=== PATIENT | female | born 1980 ===

== ENCOUNTER 2023-05-01 10:39 | Outpatient (OUT) | payer MEDICAID, SELFPAY ==
--- NOTE | 2023-05-01 10:44 | VEIN_ITS ---
Patient: KRISTIAN MCDANIELS Exam Date: 05/01/2023 : 1980 Gender:F Ordering : DR DORENE MELGAR M.D. Admission #: [id number] Family : Order #: [id number] CLICK HERE TO VIEW EXAM RADIOLOGY REPORT PROCEDURE: [facility] EST COMPREHENSIVE VEIN CENTER - OFFICE VISIT INITIAL COMPARISON: None. PROGRESS NOTES: [age] year old female who presents with a 10 year history of discolored bulging veins, leg pain, swelling, muscle cramping, itching, tenderness. The patient's right leg symptoms are worse than the left. There has been a progression of symptoms significantly over time. This increases with prolonged leg dependency. The patient describes an improvement with rest, exercise, support stockings, and medication. The patient denies any signs and symptoms to suggest arterial ischemia. The patient describes a family history varicose veins on maternal side. The patient has drinking and smoking history of colon occasional smoking; no alcohol use.. 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 The patient denies a history of deep venous thrombus or pulmonary embolus. See separate history and physical for medication list. No prior treatment for varicose or spider veins. Prior treatment included use of compression stockings. After review of nurse notes, history and physical exam I discussed at length the pathophysiology of venous hypertension and possible treatments, therapies and strategies available. We discussed at length the importance of elevating the lower extremities above the level of the heart, increased physical activity and compression stocking use. Ultrasound venous reflux study performed today was discussed at length with the patient. The report demonstrates abnormally dilated incompetent bilateral great saphenous veins, bilateral anterior accessory saphenous veins, and numerous bilateral incompetent branch saphenous varicosities. PHYSICAL EXAM: The right leg demonstrates multiple varicosities, numerous spider veins, no ulceration, mild edema, no skin discoloration. The left leg demonstrates multiple varicosities, scattered spider veins, no ulceration, mild edema, no skin discoloration. Both thighs, legs and feet were symmetrically warm to the touch. Good posterior tibial and dorsalis pedis pulses were present bilaterally. VEIN/[facility] Facility EST Comprehensive IMPRESSION: 1. Bilateral lower extremity venous insufficiency 2. Bilateral lower extremity varicose veins 3. Mild bilateral lower extremity subcutaneous edema 4. No flow significant arterial disease 5. CEAP: C3, EC, , AL PLAN: 1. Continued use of compression stockings 2. Elevated legs and increased physical activity symptomatic relief 3. Endovenous laser ablation of bilateral great saphenous veins, bilateral anterior accessory saphenous veins, microfoam chemical ablation of bilateral incompetent branch saphenous varicosities, and sclerotherapy for vertically veins and spider veins. Nurse notes, history and physical were reviewed and confirmed, see attached forms. The nurse was present throughout the physical exam and consultation Dictated by: Perfecto Samson M.D. on 05/01/2023 at 14:42 Approved by: Perfecto Samson M.D. on 05/01/2023 at 15:30
--- NOTE | 2023-05-01 10:44 | VEIN_ITS ---
Patient: KRISTIAN MCDANIELS Exam Date: 05/01/2023 : 1980 Gender:F Ordering : DR DORENE MELGAR M.D. Admission #: [id number] Family : Order #: [id number] CLICK HERE TO VIEW EXAM RADIOLOGY REPORT PROCEDURE: VC EXT VENOUS REFLUX SINCERE LMTD COMPARISON: None. INDICATIONS: I83.813 Pain due to varicose veins of bilateral leg veins TECHNIQUE: Duplex imaging of the lower extremity to assess the deep and superficial venous system for the presence of deep or superficial venous incompetence and to document the location and severity of disease. The study includes evaluation of the great saphenous vein (GSV), anterior accessory saphenous vein (AASV) and small saphenous vein (SSV). Patient scanned in reverse Trendelenburg and standing. FINDINGS: RIGHT LOWER EXTREMITY: Saphenofemoral Junction Reflux: Yes 11.0mm 1.8 sec GSV: Diam (mm) Reflux/ Time (sec) Proximal Thigh 8.4 Yes 1.1 Mid Thigh 5.8 Yes 0.6 Distal Thigh 8.6 Yes 1.1 Prox Calf 3.8 Yes 1.6 Mid Calf 3.0 Yes 0.9 Saphenopopliteal Junction Reflux: 4.7mm Yes 0.3 SSV: Proximal Calf 3.7 Yes 0.5 Mid Calf 4.2 Yes 0.3 AASV: Proximal Thigh 5.9 Yes 2.2 Mid Thigh 3.7 Yes 0.5 Distal Thigh Thrombi: No acute or chronic thrombus. Compressibility: Normal. Flow: Moderate deep venous reflux. Preforator: Prox medial lower leg 4.0 mm with 1.2s reflux. Tech Note: Incompetent varicose vein proximal medial lower leg measures 4.4 mm with 0.5s reflux. Varicose vein mid medial thigh off GSV measures 4.0 mm with 0.7s reflux. Mid medial posterior thigh varicosity measures 3.4 mm with 1.1s reflux. LEFT LOWER EXTREMITY: Saphenofemoral Junction Reflux: Yes 12.4 mm 3.4 sec GSV: Diam (mm) Reflux/Time (sec) Proximal Thigh 7.3 Yes 1.6 Mid Thigh 4.4 Yes 1.8 Distal Thigh 6.4 Yes 1.0 Prox Calf 4.2 Yes 0.5 Mid Calf 2.5 Yes 2.0 Saphenopopliteal Junction Relux: 3.7 mm Yes 0.5 SSV: Proximal Calf 3.2 Yes 0.6 Mid Calf 2.7 Yes 0.4 AASV: Proximal Thigh 7.9 Yes 3.2 Mid Thigh 4.6 Yes 1.2 Distal Thigh Thrombi: No acute or chronic thrombus. Compressibility: Normal. Flow: Moderate to severe deep venous reflux. News Director: None. Tech Note: Incompetent varicose vein proximal medial lower leg measures 3.5 mm with 1.6s reflux. Mid anterior thigh varicose vein measures 4.6 mm with 0.8s reflux. Varicose vein mid posterior thigh measures 4.0 mm with 0.6s reflux. CONCLUSION: 1. Abnormally dilated and incompetent bilateral great saphenous veins and bilateral anterior accessory saphenous veins. 2. Abnormally dilated and incompetent branch saphenous varicosities bilaterally. Dictated by: Perfecto Samson M.D. on 05/01/2023 at 11:50 Approved by: Perfecto Samson M.D. on 05/01/2023 at 11:53
== END 2023-05-01 10:40 | disposition home or self-care (01) ==
LOC: VC 10:43
PROVIDERS: PCP Radiology Diagnostic Radiology; Visit Provider Radiology Diagnostic Radiology
DX: I83.813 Varicose veins of bilateral lower extremities with pain (principal)
CPT/HCPCS: 93970; G0463

== ENCOUNTER 2023-05-22 07:36 | Outpatient (OUT) | payer MEDICAID, SELFPAY ==
--- NOTE | 2023-05-22 07:37 | VEIN_ITS ---
[address] [address] Patient Name: KRISTIAN MCDANIELS MRN: [id number] date: 1980 Sex: F Assigned Patient Location: Current Patient Location: Accession/Order Number: [id number] Exam Date: 05/22/2023 08:12 Report Date: 05/22/2023 11:30 At the request of: DORENE MELGAR Procedure: VC Endovenous Ablation 1VeinRT EXAMINATION: VC Endovenous Ablation 1Vein right great saphenous vein HISTORY: I83.813 Pain due to varicose veins of bilateral legs COMPARISON: No relevant comparison available. TECHNIQUE: The risks and benefits of the procedure had been previously discussed, and were rediscussed at length. Informed written consent was obtained. Bree and [place] assisted. Time out procedure was performed. The right lower extremity was prepared and draped in the usual sterile fashion to allow knee flexion in the sterile field. Duplex ultrasound probe was draped in a sterile cover, sterile transmission gel was used. Venous mapping was performed with the areas of dilation and large tributaries marked. The total length was 34 cm from the entry upper calf to 3 cm below the saphenofemoral junction. The diameter of the greater saphenous vein ranged from 4-9 mm. A 30 gauge needle and 1% buffered lidocaine was used to anesthetize the entry site. A 4 mm incision was made with a scalpel and the saphenous vein was entered percutaneously under direct ultrasound guidance with a micropuncture set, a single stick was successful in gaining access. A micro-guide wire was inserted and the needle removed. A micro-set including a dilator was inserted over the microwire and the needle and dilator were removed. A 0.018 guide wire was inserted through the micro-set and threaded through the saphenous vein to the saphenofemoral junction. The dilator was removed and an introducer sheath was inserted over the wire until the end of the sheath entered the saphenofemoral junction. The dilator and wire were removed and the 600 micron fiber was introduced and placed and positioned so that it extended beyond the sheath and was 3 cm peripheral to the saphenofemoral femoral junction. Final position of the fiber was determined by ultrasound guidance and duplex imaging. Tumescent anesthetic was delivered by ultrasound guidance. 200 cc of fluid was delivered along the entire course of the saphenous vein. The solution consisted of 1000 cc of normal saline with 40 mL of 1% lidocaine and 20 mL of sodium bicarbonate. A final positioning check was made. The energy source was turned on by means of the foot pedal and the fiber and sheath were withdrawn. The total number of Joules delivered was 1609. The laser was active for 201 seconds under continuous pulse, average laser use of 8 J. Laser start time 8:25 AM 05/22/2023 . Laser stop time 8:28 am 05/22/2023 . A duplex ultrasound revealed compressibility and flow at the saphenofemoral junction immediately after the procedure. Hemostasis at the access site was achieved. The skin incision of the saphenous vein was closed with a 4 x 4. A compression stocking was applied. Postop instructions were given. A follow up appointment was recommended and scheduled. The patient tolerated the procedure well and was discharged in good condition . VEIN/[facility] Endovenous Ablation 1VeinRT IMPRESSION: Technically successful endovenous laser ablation right great saphenous vein Electronically authenticated by: DORENE MELGAR Date: 05/22/2023 11:30
[2023-05-22] MEDS: 0.9 % SODIUM CHLORIDE 500 ML, LIDOCAINE HCL 20 ML, SODIUM BICARBONATE 10 MEQ INJ (08:52)
== END 2023-05-22 07:37 | disposition home or self-care (01) ==
LOC: VC 07:36
PROVIDERS: PCP Radiology Diagnostic Radiology; Visit Provider Radiology Diagnostic Radiology
DX: I83.813 Varicose veins of bilateral lower extremities with pain (principal)
CPT/HCPCS: 36478

== ENCOUNTER 2023-05-26 07:37 | Outpatient (OUT) | payer MEDICAID, SELFPAY ==
--- NOTE | 2023-05-26 07:39 | VEIN_ITS ---
Patient: KRISTIAN MCDANIELS Exam Date: 05/26/2023 : 1980 Gender:F Ordering : DR ABELARDO HAMILTON M.D. Admission #: [id number] Family : Order #: [id number] CLICK HERE TO VIEW EXAM RADIOLOGY REPORT PROCEDURE: VC EXT VENOUS RT LMTD COMPARISON: None. INDICATIONS: I80.01 Phlebitis of superficial veins of rt lower extremity TECHNIQUE: Lower extremity cortez scale and Duplex Doppler evaluation of the deep venous system from the inguinal ligament through the calf veins. FINDINGS: REGION: Right lower extremity. THROMBI: Negative for DVT. Heat induced thrombus visualized 1.2 cm from the SFJ. The heat induced thrombus extends from groin to prox calf. COMPRESSIBILITY: Non-compressible segments corresponding to thrombus. FLOW: Absent flow corresponding to thrombus CONCLUSION: Post ablation occlusion of the right great saphenous vein with heat induced thrombus 1.2 cm from the saphenofemoral junction Dictated by: Abelardo Hamilton MD on 05/26/2023 at 07:54 Approved by: Abelardo Hamilton MD on 05/26/2023 at 07:54
--- NOTE | 2023-05-26 07:39 | VEIN_ITS ---
Patient: KRISTIAN MCDANIELS Exam Date: 05/26/2023 : 1980 Gender:F Ordering : DR ABELARDO HAMILTON M.D. Admission #: [id number] Family : Order #: [id number] CLICK HERE TO VIEW EXAM RADIOLOGY REPORT PROCEDURE: [facility]ACILITY EST LMTD VEIN CENTER - OFFICE VISIT FOLLOW UP COMPARISON: None. PROGRESS NOTES: The patient reports no significant problem following endovenous laser ablation of the right great saphenous vein. The patient wore her compression stockings. The patient did not require oral analgesics. The patient has followed our recommendations to walk 20-30 minutes once or twice per day since the procedure. Physical exam demonstrates 5 areas of bruising likely related to tumescence injection ranging from 1-2 cm in diameter. The thrombosed right great saphenous vein can be partially palpated. No areas of erythema or warmth to suggest cellulitis or thrombophlebitis. No active ulceration Review of the ultrasound performed the same day demonstrates occlusive thrombus extending throughout the treated right great saphenous vein with heat induced thrombus 1.2 cm from the saphenofemoral junction. The patient expressed a desire to proceed with treatment of incompetent left great saphenous vein. VEIN/[facility] Facility EST LMTD IMPRESSION: 1. Successful ablation of the right great saphenous vein 2. Persistent incompetent left great saphenous vein. PLAN: Intravenous laser ablation left great saphenous vein Nurse notes, history and physical were reviewed and confirmed, see attached forms. The nurse was present throughout the physical exam and consultation Dictated by: Abelardo Hamilton MD on 05/26/2023 at 08:08 Approved by: Abelardo Hamilton MD on 05/26/2023 at 08:43
== END 2023-05-26 07:38 | disposition home or self-care (01) ==
LOC: VC 07:37
PROVIDERS: PCP Radiology Diagnostic Radiology; Visit Provider Radiology Diagnostic Radiology
DX: I80.01 Phlebitis and thrombophlebitis of superficial vessels of right lower extremity (principal)
CPT/HCPCS: 93971; G0463

== ENCOUNTER 2023-05-29 07:42 | Outpatient (OUT) | payer MEDICAID, SELFPAY ==
--- NOTE | 2023-05-29 07:46 | VEIN_ITS ---
[address] [address] Patient Name: KRISTIAN MCDANIELS MRN: [id number] date: 1980 Sex: F Assigned Patient Location: Current Patient Location: Accession/Order Number: [id number] Exam Date: 05/29/2023 07:50 Report Date: 05/29/2023 09:01 At the request of: DORENE MELGAR Procedure: VC Endovenous Ablation 1VeinLT EXAMINATION: VC Endovenous Ablation 1VeinLT HISTORY: I83.813 Pain due to varicose veins of bilateral legs The risks and benefits of the procedure had been previously discussed, and were rediscussed at length. Informed written consent was obtained. Merritt Urbina RN and Shannon Mcintosh RDMS, RVT assisted. Time out procedure was performed. The left lower extremity was prepared and draped in the usual sterile fashion to allow knee flexion in the sterile field. Duplex ultrasound probe was draped in a sterile cover, sterile transmission gel was used. Venous mapping was performed with the areas of dilation and large tributaries marked. The total length was 34 cm from the entry medial to the knee to 3 cm below the Saphenofemoral junction. The diameter of the great saphenous vein ranged from 7.3 mm. A 30 gauge needle and 1% buffered lidocaine was used to anesthetize the entry site. A 4 mm incision was made with a scalpel and the saphenous vein was entered percutaneously under direct ultrasound guidance with a micropuncture set, a single stick was successful in gaining access. A micro-guide wire was inserted and the needle removed. A micro-set including a dilator was inserted over the microwire and the needle and dilator were removed. A guide wire was inserted through the micro-set and guided through the saphenous vein to the saphenofemoral junction. The dilator was removed and an introducer sheath was inserted over the wire until the end of the sheath entered the saphenofemoral junction. The dilator and wire were removed and the 600 micron fiber was introduced and placed and positioned so that it extended beyond the sheath and was 3 cm distal to the saphenofemoral or saphenopopliteal junction. Final position of the fiber was determined by ultrasound guidance and duplex imaging. Tumescent anesthetic was delivered by ultrasound guidance. 300 cc of fluid was delivered along the entire course of the saphenous vein. The solution consisted of 1000 cc of normal saline with 40 mL of 1% lidocaine and 20 mL of sodium bicarbonate. A final positioning check was made. The energy source was turned on by means of the foot pedal and the fiber and sheath were withdrawn. The total number of Joules delivered was 1574. The laser was active for 197 seconds under continuous pulse, average laser use of 8 J. Laser start time 8:25 AM, 05/29/2023. Laser stop time 8:32 AM, 05/29/2023. A duplex ultrasound revealed compressibility and flow at the saphenofemoral junction immediately after the procedure. Hemostasis at the access site was achieved. The skin incision of the saphenous vein was closed with a 4 x 4. A compression stocking was applied. Postop instructions were given. A follow up appointment was recommended and scheduled. The patient tolerated the procedure well. Electronically authenticated by: CHRISTELLE BENNETT Date: 05/29/2023 09:01
[2023-05-29] MEDS: 0.9 % SODIUM CHLORIDE 500 ML, LIDOCAINE HCL 20 ML, SODIUM BICARBONATE 10 MEQ INJ (07:52)
[2023-05-29] MEDS: LIDOCAINE HCL 10 ML, SODIUM BICARBONATE 1 MEQ INJ (07:53)
== END 2023-05-29 07:43 | disposition home or self-care (01) ==
LOC: VC 07:42
PROVIDERS: PCP Radiology Diagnostic Radiology; Visit Provider Radiology Diagnostic Radiology
DX: I83.813 Varicose veins of bilateral lower extremities with pain (principal)
CPT/HCPCS: 36478

== ENCOUNTER 2023-06-02 07:31 | Outpatient (OUT) | payer MEDICAID, SELFPAY ==
--- NOTE | 2023-06-02 07:33 | VEIN_ITS ---
Patient: KRISTIAN MCDANIELS Exam Date: 06/02/2023 : 1980 Gender:F Ordering : DR ABELARDO HAMILTON M.D. Admission #: [id number] Family : Order #: [id number] CLICK HERE TO VIEW EXAM RADIOLOGY REPORT PROCEDURE: [facility] EST LMTD VEIN CENTER - OFFICE VISIT FOLLOW UP [facility] PROGRESS NOTES: The patient reports mild discomfort of the left leg following intravenous laser ablation of the left great saphenous vein. The patient did not require oral analgesics. The patient has worn her compression stockings. The patient has followed our recommendations to walk 20-30 minutes once or twice per day since the procedure. Physical exam demonstrates 5 areas of bruising in the medial left thigh likely related to tumescence injection. The incision site is closed. No areas of erythema or bruising to suggest cellulitis or thrombophlebitis. No active ulceration. Thrombosed left great saphenous vein can be partially palpated Review of the ultrasound performed the same day demonstrates occlusive thrombus extending throughout the treated left great saphenous vein with heat induced thrombus 1.5 cm from the saphenofemoral junction. The patient expressed a desire to proceed with treatment of incompetent left anterior accessory saphenous vein. VEIN/[facility] EST LMTD IMPRESSION: 1. Successful ablation of the left great saphenous vein 2. Persistent incompetent bilateral anterior accessory saphenous veins, left greater than right. PLAN: Intravenous laser ablation left anterior accessory saphenous vein Nurse notes, history and physical were reviewed and confirmed, see attached forms. The nurse was present throughout the physical exam and consultation Dictated by: Abelardo Hamilton MD on 06/02/2023 at 08:38 Approved by: Abelardo Hamilton MD on 06/02/2023 at 08:44
--- NOTE | 2023-06-02 07:33 | VEIN_ITS ---
Patient: KRISTIAN MCDANIELS Exam Date: 06/02/2023 : 1980 Gender:F Ordering : DR ABELARDO HAMILTON M.D. Admission #: [id number] Family : Order #: [id number] CLICK HERE TO VIEW EXAM RADIOLOGY REPORT PROCEDURE: VC EXT VENOUS LT LIMITED COMPARISON: None. INDICATIONS: I80.02 Phlebitis of superficial veins of lt lower extremity TECHNIQUE: Lower extremity cortez scale and Duplex Doppler evaluation of the deep venous system from the inguinal ligament through the calf veins. FINDINGS: REGION: Right lower extremity. THROMBI: Negative for DVT. Heat induced thrombus visualized 1.5 cm from the SFJ. The heat induced thrombus extends from groin to distal thigh. COMPRESSIBILITY: Non-compressible segments corresponding to thrombus. FLOW: Absent flow corresponding to thrombus CONCLUSION: Post ablation occlusion of the left great saphenous vein with heat induced thrombus 1.5 cm from the saphenofemoral junction Dictated by: Abelardo Hamilton MD on 06/02/2023 at 07:50 Approved by: Abelardo Hamliton MD on 06/02/2023 at 07:52
== END 2023-06-02 07:32 | disposition home or self-care (01) ==
LOC: VC 07:31
PROVIDERS: PCP Radiology Diagnostic Radiology; Visit Provider Radiology Diagnostic Radiology
DX: I80.02 Phlebitis and thrombophlebitis of superficial vessels of left lower extremity (principal)
CPT/HCPCS: 93971; G0463

== ENCOUNTER 2023-06-05 09:11 | Outpatient (OUT) | payer MEDICAID, SELFPAY ==
--- NOTE | 2023-06-05 09:13 | VEIN_ITS ---
[address] [address] Patient Name: KRISTIAN MCDANIELS MRN: [id number] date: 1980 Sex: F Assigned Patient Location: Current Patient Location: Accession/Order Number: [id number] Exam Date: 06/05/2023 09:15 Report Date: 06/05/2023 10:19 At the request of: DORENE MELGAR Procedure: VC Endovenous Ablation 1VeinLT EXAMINATION: VC Endovenous Ablation 1Vein left anterior accessory saphenous vein HISTORY: I83.813 Painful varicose veins of bilat lower extremities COMPARISON: No relevant comparison available. TECHNIQUE: The risks and benefits of the procedure had been previously discussed, and were rediscussed at length. Informed written consent was obtained. Mary Lou Mcintosh and Merritt Urbina assisted. Time out procedure was performed. The left lower extremity was prepared and draped in the usual sterile fashion to allow knee flexion in the sterile field. Duplex ultrasound probe was draped in a sterile cover, sterile transmission gel was used. Venous mapping was performed with the areas of dilation and large tributaries marked. The total length was 13 cm from the entry mid thigh to 3 cm below the saphenofemoral junction. The diameter of the greater saphenous vein ranged from 5-8 mm. A 30 gauge needle and 1% buffered lidocaine was used to anesthetize the entry site. A 4 mm incision was made with a scalpel and the saphenous vein was entered percutaneously under direct ultrasound guidance with a micropuncture set, a single stick was successful in gaining access. A micro-guide wire was inserted and the needle removed. A micro-set including a dilator was inserted over the microwire and the needle and dilator were removed. A 0.018 guide wire was inserted through the micro-set and threaded through the saphenous vein to the saphenofemoral junction. The dilator was removed and an introducer sheath was inserted over the wire until the end of the sheath entered the saphenofemoral junction. The dilator and wire were removed and the 600 micron fiber was introduced and placed and positioned so that it extended beyond the sheath and was 3 cm peripheral to the saphenofemoral femoral junction. Final position of the fiber was determined by ultrasound guidance and duplex imaging. Tumescent anesthetic was delivered by ultrasound guidance. 150 cc of fluid was delivered along the entire course of the saphenous vein. The solution consisted of 1000 cc of normal saline with 40 mL of 1% lidocaine and 20 mL of sodium bicarbonate. A final positioning check was made. The energy source was turned on by means of the foot pedal and the fiber and sheath were withdrawn. The total number of Joules delivered was 682. The laser was active for 85 seconds under continuous pulse, average laser use of 8 J. Laser start time 9:51 am 06/05/23 . Laser stop time 9:53 AM 06/05/23. A duplex ultrasound revealed compressibility and flow at the saphenofemoral junction immediately after the procedure. Hemostasis at the access site was achieved. The skin incision of the saphenous vein was closed with a 4 x 4. A compression stocking was applied. Postop instructions were given. A follow up appointment was recommended and scheduled. The patient tolerated the procedure well and was discharged in good condition . VEIN/VC Endovenous Ablation 1VeinLT IMPRESSION: Technically successful endovenous laser ablation left anterior accessory saphenous vein Electronically authenticated by: DORENE MELGAR Date: 06/05/2023 10:19
[2023-06-05] MEDS: 0.9 % SODIUM CHLORIDE 500 ML, LIDOCAINE HCL 20 ML, SODIUM BICARBONATE 10 MEQ INJ (09:36)
== END 2023-06-05 09:12 | disposition home or self-care (01) ==
LOC: VC 09:11
PROVIDERS: PCP Radiology Diagnostic Radiology; Visit Provider Radiology Diagnostic Radiology
DX: I83.813 Varicose veins of bilateral lower extremities with pain (principal)
CPT/HCPCS: 36478

== ENCOUNTER 2023-06-11 08:13 | Outpatient (OUT) | payer MEDICAID, SELFPAY ==
--- NOTE | 2023-06-11 08:14 | VEIN_ITS ---
Patient: KRISTIAN MCDANIELS Exam Date: 06/11/2023 : 1980 Gender:F Ordering : DR DORENE MELGAR M.D. Admission #: [id number] Family : Order #: [id number] CLICK HERE TO VIEW EXAM RADIOLOGY REPORT PROCEDURE: VC EXT VENOUS LT LIMITED COMPARISON: VC EXT VENOUS LT LIMITED, 06/02/2023. INDICATIONS: I80.02 Phlebitis of superficial veins of lt lower extremity TECHNIQUE: Lower extremity cortez scale and Duplex Doppler evaluation of the deep venous system from the inguinal ligament through the calf veins. FINDINGS: REGION: Left lower extremity. THROMBI: Negative for DVT. Heat induced thrombus visualized arising 2.6cm from the SFJ. The thrombus extends from groin to mid thigh. COMPRESSIBILITY: Non-compressible segments. FLOW: Areas of no flow. OTHER: CONCLUSION: 1. Successful post ablation occlusion of left anterior accessory saphenous vein. Dictated by: Perfecto Samson M.D. on 06/11/2023 at 09:40 Approved by: Perfecto Samson M.D. on 06/11/2023 at 09:43
--- NOTE | 2023-06-11 08:14 | VEIN_ITS ---
Patient: KRISTIAN MCDANIELS Exam Date: 06/11/2023 : 1980 Gender:F Ordering : DR DORENE MELGAR M.D. Admission #: [id number] Family : Order #: [id number] CLICK HERE TO VIEW EXAM RADIOLOGY REPORT PROCEDURE: [facility] EST LMTD VEIN CENTER - OFFICE VISIT FOLLOW UP COMPARISON: [facility], 06/02/2023. PROGRESS NOTES: The patient reports improvement in leg symptoms. There has been interval reduction in varicosities. The patient has followed our recommendations to walk 20-30 minutes once or twice per day since the procedure. Physical exam demonstrates decrease in varicosities of the leg. Persistent varicosities are identified along the legs bilaterally. Review of the ultrasound performed the same day demonstrates occlusive thrombus extending throughout the treated vein(s), see separate report, consistent with a successful ablation. No thrombus extending into or beyond the saphenofemoral junction. The patient expressed a desire to proceed with treatment of remaining abnormal varicosities. The patient was informed that treatment was a process and would require approximately 2-3 procedures/sessions. VEIN/[facility] EST LMTD IMPRESSION: 1. Successful ablation of the left anterior accessory saphenous vein(s). 2. Persistent varicose veins and improving bilateral lower extremity symptoms. PLAN: 1. Endovenous laser ablation of right anterior accessory saphenous vein due to proximal dilation, significant proximal reflux, varicosities, and patient being symptomatic in this region. 2. Microfoam chemical ablation branch saphenous varicosities bilaterally. Nurse notes, history and physical were reviewed and confirmed, see attached forms. The nurse was present throughout the physical exam and consultation Dictated by: Perfecto Samson M.D. on 06/11/2023 at 09:43 Approved by: Perfecto Samson M.D. on 06/11/2023 at 09:46
== END 2023-06-11 08:14 | disposition home or self-care (01) ==
LOC: VC 08:13
PROVIDERS: PCP Radiology Diagnostic Radiology; Visit Provider Radiology Diagnostic Radiology
DX: I80.02 Phlebitis and thrombophlebitis of superficial vessels of left lower extremity (principal)
CPT/HCPCS: 93971; G0463

== ENCOUNTER 2023-06-12 07:27 | Outpatient (OUT) | payer MEDICAID, SELFPAY ==
--- NOTE | 2023-06-12 | VEIN_ITS ---
[address] [address] Patient Name: KRISTIAN MCDANIELS MRN: [id number] date: 1980 Sex: F Assigned Patient Location: Current Patient Location: Accession/Order Number: [id number] Exam Date: 06/12/2023 07:35 Report Date: 06/12/2023 12:38 At the request of: DORENE MELGAR Procedure: VC INJ Foam Sclerosant WUS PRODUCTION CONTROL SCHEDULER PROCEDURE: VC INJ Foam Sclerosant WUS PRODUCTION CONTROL SCHEDULER HISTORY: I83.813 Painful varicose veins of bilat lower extremities Pre-operative Diagnosis: CEAP class C3 venous insufficiency with pain, tenderness, edema and incompetent branch saphenous vein(s), chronic venous insufficiency right leg secondary to venous incompetence Post-operative Diagnosis: CEAP class C3 venous insufficiency with pain, tenderness, edema and incompetent branch saphenous vein(s), chronic venous insufficiency right leg secondary to venous incompetence Procedure Performed: 1. Ultrasound-guided microfoam chemical ablation with Varithenaregistered 2. Intraoperative ultrasound guidance Physician: Perfecto Samson M.D. Anesthesia: None Indications for Procedure: 43 year old female. Symptoms including chronic dilated, bulging veins, lower extremity swelling, itching, throbbing for many years despite conservative medical therapy including medical compression stockings, exercise and analgesics. Prior procedures include endovenous laser ablation. Multiple incompetent varicosities of the right leg. Duplex scan showed reflux and enlarged diameters up to 4 mm. The patient underwent informed consent including management options where the complications of infection, bleeding, pain, and skin injury were discussed. Particular attention was spent discussing thrombus extension and deep vein thrombosis as well as the possibility of pulmonary embolus and treatment with oral or injectable blood thinners. Procedure: The patient walked to the procedure room. All applicable staff donned appropriate apparel. A procedure timeout was performed to confirm correct patient, correct extremity, correct procedure, and correct room set-up including presence of all applicable supplies, devices, and drugs. A duplex ultrasound, performed by myself confirmed the location and incompetence of branch saphenous varicosities and their course was marked on the skin together with the dilated tributaries. The extent of treatment of the vein and the associated varicosities was determined through ultrasound mapping. The skin was prepped and then punctured with a butterfly needle and advanced under ultrasound guidance. The Varithenaregistered canister was activated and the canister was primed and purged as required in the instructions for use. Varithenaregistered was drawn into a sterile syringe. Varithenaregistered was slowly administered at 0.5-1.0 cc/second with close observation by ultrasound of its course in the vessels. Total volume utilized was: 15 mL (5 mL into a 4 mm varicosity of the mid posterior calf; 2 mL into a 3 mm varicosity of the lateral posterior mid upper calf; 3 mL into a 3 mm varicosity of the proximal posterior upper leg). Following administration of Varithenaregistered the leg was elevated and the patient was asked to repeatedly dorsiflex the ankle to limit flow of Varithenaregistered into perforating veins. Once appropriate spasm had been confirmed in the treated veins, the vascular catheter was removed from the leg and light pressure was applied over the puncture site for hemostasis. The common femoral and deep superficial veins were then evaluated for flow and compressibility prior to dressing placement. The lower extremity was kept elevated at 45 degrees above the horizontal and cording material was applied over the saphenous segments and tributaries to allow for eccentric compression over the target vessels including the targeted saphenous vein(s). A multilayer dressing was applied consisting of foam pads, coban and thigh-high 20-30 mm Hg compression elastic support hose were placed on the patient. The leg was lowered only after compression had been applied and the patient was immediately ambulatory. The patient ambulated 10 minutes under supervision and was without apparent concerns at time of release. Post-care instructions include advising patient to keep post-treatment bandages in place and dry for 48 hours, avoid extended periods of inactivity, avoid heavy exercise for one week, wear compression stockings on the treated leg continuously for two weeks, to walk daily for 10 minutes over the next month. The patient was instructed to take an anti-inflammatory medicine as needed and to follow up for color duplex scan of the Saphenous veins, the treated branch saphenous varicosities, the adjacent deep veins, and additional treatment within 7 days. PERSONNEL: Merritt Urbina RN and Nasra Montana RDMS Electronically authenticated by: PERFECTO SAMSON Date: 06/12/2023 12:38
[2023-06-12] MEDS: LIDOCAINE HCL 10 ML, SODIUM BICARBONATE 1 MEQ INJ (07:40)
[2023-06-12] MEDS: 0.9 % SODIUM CHLORIDE 500 ML, LIDOCAINE HCL 20 ML, SODIUM BICARBONATE 10 MEQ INJ (07:41)
== END 2023-06-12 07:28 | disposition home or self-care (01) ==
LOC: VC 07:28
PROVIDERS: PCP Radiology Diagnostic Radiology; Visit Provider Radiology Diagnostic Radiology
DX: I83.813 Varicose veins of bilateral lower extremities with pain (principal)
CPT/HCPCS: 36466

== ENCOUNTER 2023-06-16 09:05 | Outpatient (OUT) | payer MEDICAID, SELFPAY ==
--- NOTE | 2023-06-16 09:06 | VEIN_ITS ---
Patient: KRISTIAN MCDANIELS Exam Date: 06/16/2023 : 1980 Gender:F Ordering : DR ABELARDO HAMILTON M.D. Admission #: [id number] Family : Order #: [id number] CLICK HERE TO VIEW EXAM RADIOLOGY REPORT PROCEDURE: [facility]ILITY EST LMTD [facility]IN CENTER - OFFICE VISIT FOLLOW UP COMPARISON: FACILITY EST LMTD, 06/11/2023. FACILITY EST LMTD, 06/02/2023. PROGRESS NOTES: The patient reports no significant problems following micro foam chemical ablation the right leg. The patient has worn compression stockings. There has been interval reduction in varicosities. The patient has followed our recommendations to walk 20-30 minutes once or twice per day since the procedure. Physical exam demonstrates scattered thrombosed treated varicose veins in the right leg. Multiple areas of bruising likely related to the injections the largest measuring 10 cm in diameter along the lateral right mid proximal thigh. No areas of erythema or warmth to suggest cellulitis or thrombophlebitis. No active ulceration. Review of the ultrasound performed the same day demonstrates occlusive thrombus extending throughout the treated right leg varicose veins with no significant residual incompetent patent varicose veins observed. The patient expressed a desire to proceed with treatment of incompetent left leg varicose veins. VEIN/ Facility EST LMTD IMPRESSION: 1. Successful ablation of incompetent right leg varicose veins. 2. Persistent incompetent left leg varicose veins. PLAN: Micro foam chemical ablation left leg incompetent varicose veins Nurse notes, history and physical were reviewed and confirmed, see attached forms. The nurse was present throughout the physical exam and consultation Dictated by: Abelardo Hamilton MD on 06/16/2023 at 11:49 Approved by: Abelardo Hamilton MD on 06/16/2023 at 11:51
--- NOTE | 2023-06-16 09:07 | VEIN_ITS ---
Patient: KRISTIAN MCDANIELS Exam Date: 06/16/2023 : 1980 Gender:F Ordering : DR ABELARDO HAMILTON M.D. Admission #: [id number] Family : Order #: [id number] CLICK HERE TO VIEW EXAM RADIOLOGY REPORT PROCEDURE: VC EXT VENOUS RT LMTD COMPARISON: [facility] EXT VENOUS RT LMTD, 05/26/2023. INDICATIONS: I80.01 Phlebitis of superficial veins of rt lower extremity TECHNIQUE: Lower extremity cortez scale and Duplex Doppler evaluation of the deep venous system from the inguinal ligament through the calf veins. FINDINGS: REGION: Right lower extremity. THROMBI: Negative for DVT. Varithena induced thrombus visualized prox/med calf and mid/lat calf COMPRESSIBILITY: Non-compressible segments corresponding to thrombus. FLOW: Absent flow corresponding to thrombus OTHER: No patent varicose veins remain. CONCLUSION: Post ablation occlusion of treated right leg incompetent varicose veins with no residual varicose veins observed Dictated by: Abelardo Hamilton MD on 06/16/2023 at 09:33 Approved by: Abelardo Hamilton MD on 06/16/2023 at 09:34
== END 2023-06-16 09:06 | disposition home or self-care (01) ==
LOC: VC 09:05
PROVIDERS: PCP Radiology Diagnostic Radiology; Visit Provider Radiology Diagnostic Radiology
DX: I80.03 Phlebitis and thrombophlebitis of superficial vessels of lower extremities, bilateral (principal)
CPT/HCPCS: 93971; G0463

== ENCOUNTER 2023-06-19 09:59 | Outpatient (OUT) | payer MEDICAID, SELFPAY ==
--- NOTE | 2023-06-19 10:00 | VEIN_ITS ---
[address] [address] Patient Name: KRISTIAN MCDANIELS MRN: [id number] date: 1980 Sex: F Assigned Patient Location: Current Patient Location: Accession/Order Number: [id number] Exam Date: 06/19/2023 10:00 Report Date: 06/19/2023 11:22 At the request of: DORENE MELGAR Procedure: VC INJ Foam Sclerosant WUS SCRIPT EDITOR PROCEDURE: VC INJ Foam Sclerosant WUS SCRIPT EDITOR HISTORY: Pain due to varicose veins of bilateral legs I83.813 Pre-operative Diagnosis: CEAP class C3 venous insufficiency with pain, tenderness, edema and incompetent branch saphenous vein(s), chronic venous insufficiency left leg secondary to venous incompetence Post-operative Diagnosis: CEAP class C3 venous insufficiency with pain, tenderness, edema and incompetent branch saphenous vein(s), chronic venous insufficiency left leg secondary to venous incompetence Procedure Performed: 1. Ultrasound-guided microfoam chemical ablation with Varithenaregistered 2. Intraoperative ultrasound guidance Physician: Perfecto Samson M.D. Anesthesia: None Indications for Procedure: 43 year old female. Symptoms including lower extremity swelling, pain, dilated bulging veins for many years despite conservative medical therapy including medical compression stockings, exercise and analgesics. Prior procedures include endovenous laser ablation and microfoam chemical ablation. Multiple incompetent varicosities of the left leg. Duplex scan showed reflux and enlarged diameters up to 5 mm. The patient underwent informed consent including management options where the complications of infection, bleeding, pain, and skin injury were discussed. Particular attention was spent discussing thrombus extension and deep vein thrombosis as well as the possibility of pulmonary embolus and treatment with oral or injectable blood thinners. Procedure: The patient walked to the procedure room. All applicable staff donned appropriate apparel. A procedure timeout was performed to confirm correct patient, correct extremity, correct procedure, and correct room set-up including presence of all applicable supplies, devices, and drugs. A duplex ultrasound, performed by myself confirmed the location and incompetence of branch saphenous varicosities and their course was marked on the skin together with the dilated tributaries. The extent of treatment of the vein and the associated varicosities was determined through ultrasound mapping. The skin was prepped and then punctured with a butterfly needle and advanced under ultrasound guidance. The Varithenaregistered canister was activated and the canister was primed and purged as required in the instructions for use. Varithenaregistered was drawn into a sterile syringe. Varithenaregistered was slowly administered at 0.5-1.0 cc/second with close observation by ultrasound of its course in the vessels. Total volume utilized was: 11 mL (7 mL into a 5 mm varicosity of the distal lateral thigh; 4 mL into a 3 mm varicosity of the distal medial thigh). Following administration of Varithenaregistered the leg was elevated and the patient was asked to repeatedly dorsiflex the ankle to limit flow of Varithenaregistered into perforating veins. Once appropriate spasm had been confirmed in the treated veins, the vascular catheter was removed from the leg and light pressure was applied over the puncture site for hemostasis. The common femoral and deep superficial veins were then evaluated for flow and compressibility prior to dressing placement. The lower extremity was kept elevated at 45 degrees above the horizontal and cording material was applied over the saphenous segments and tributaries to allow for eccentric compression over the target vessels including the targeted saphenous vein(s). A multilayer dressing was applied consisting of foam pads, coban and thigh-high 20-30 mm Hg compression elastic support hose were placed on the patient. The leg was lowered only after compression had been applied and the patient was immediately ambulatory. The patient ambulated 10 minutes under supervision and was without apparent concerns at time of release. Post-care instructions include advising patient to keep post-treatment bandages in place and dry for 48 hours, avoid extended periods of inactivity, avoid heavy exercise for one week, wear compression stockings on the treated leg continuously for two weeks, to walk daily for 10 minutes over the next month. The patient was instructed to take an anti-inflammatory medicine as needed and to follow up for color duplex scan of the Saphenous veins, the treated branch saphenous varicosities, the adjacent deep veins, and additional treatment within 7 days. PERSONNEL: Carolina Curtis RN Electronically authenticated by: PERFECTO SAMSON Date: 06/19/2023 11:22
== END 2023-06-19 10:00 | disposition home or self-care (01) ==
LOC: VC 09:59
PROVIDERS: PCP Radiology Diagnostic Radiology; Visit Provider Radiology Diagnostic Radiology
DX: I83.813 Varicose veins of bilateral lower extremities with pain (principal)
CPT/HCPCS: 36466

== ENCOUNTER 2023-06-23 08:04 | Outpatient (OUT) | payer MEDICAID, SELFPAY ==
--- NOTE | 2023-06-23 08:05 | VEIN_ITS ---
Patient: KRISTIAN MCDANIELS Exam Date: 06/23/2023 : 1980 Gender:F Ordering : DR ABELARDO HAMILTON M.D. Admission #: [id number] Family : Order #: [id number] CLICK HERE TO VIEW EXAM RADIOLOGY REPORT PROCEDURE: [facility]ILITY EST LMTD VEIN CENTER - OFFICE VISIT FOLLOW UP COMPARISON: FACILITY EST LMTD, 06/16/2023. FACILITY EST LMTD, 06/11/2023. PROGRESS NOTES: The patient reports no significant problems following micro foam chemical ablation. The patient has worn her compression stockings as directed. There has been interval reduction in varicosities. The patient has followed our recommendations to walk 20-30 minutes once or twice per day since the procedure. Physical exam demonstrates multiple thrombosed varicose veins. Some mild hemosiderin staining. No significant patent varicose veins are observed. No erythema or warmth to suggest cellulitis or thrombophlebitis. No active ulceration. Scattered reticular and spider veins. Review of the ultrasound performed the same day demonstrates occlusive thrombus extending throughout the treated varicose veins with no deep vein thrombus. The patient expressed a desire to proceed with treatment of spider and reticular veins with self pay sclerotherapy. VEIN/ Facility EST LMTD IMPRESSION: 1. Successful ablation of treated bilateral incompetent varicose veins 2. Persistent bilateral reticular and spider veins. PLAN: Micro foam chemical ablation bilateral reticular and spider veins Nurse notes, history and physical were reviewed and confirmed, see attached forms. The nurse was present throughout the physical exam and consultation Dictated by: Abelardo Hamilton MD on 06/23/2023 at 12:14 Approved by: Abelardo Hamilton MD on 06/23/2023 at 12:49
--- NOTE | 2023-06-23 08:05 | VEIN_ITS ---
Patient: KRISTIAN MCDANIELS Exam Date: 06/23/2023 : 1980 Gender:F Ordering : DR ABELARDO HAMILTON M.D. Admission #: [id number] Family : Order #: [id number] CLICK HERE TO VIEW EXAM RADIOLOGY REPORT PROCEDURE: VC EXT VENOUS LT LIMITED COMPARISON: [facility] EXT VENOUS LT LIMITED, 06/11/2023. VC EXT VENOUS LT LIMITED, 06/02/2023. INDICATIONS: I80.02 Phlebitis of superficial veins of lt lower extremity TECHNIQUE: Lower extremity cortez scale and Duplex Doppler evaluation of the deep venous system from the inguinal ligament through the calf veins. FINDINGS: REGION: Left lower extremity. THROMBI: Negative for DVT. Varithena induced thrombus visualized at mid/med calf, mid/med thigh, and mid/lateral thigh. COMPRESSIBILITY: Non-compressible segments corresponding to thrombus. FLOW: Areas of absent flow corresponding to thrombus. OTHER: No patent varicose veins remain. CONCLUSION: Post ablation occlusion of treated varicose veins Dictated by: Abelardo Hamilton MD on 06/23/2023 at 08:25 Approved by: Abelardo Hamilton MD on 06/23/2023 at 08:37
== END 2023-06-23 08:05 | disposition home or self-care (01) ==
LOC: VC 08:04
PROVIDERS: PCP Radiology Diagnostic Radiology; Visit Provider Radiology Diagnostic Radiology
DX: I80.02 Phlebitis and thrombophlebitis of superficial vessels of left lower extremity (principal)
CPT/HCPCS: 93971; G0463

== ENCOUNTER 2024-01-27 09:32 | Outpatient (OUT) | payer MEDICAID, SELFPAY ==
--- NOTE | 2024-01-27 09:36 | US_ITS ---
Patient Name: KRISTIAN MCDANIELS MR#: [id number] : 1980 Exam Date: 01/27/2024 Ordering Doctor: DR Merrick Marin . RADIOLOGY REPORT PROCEDURE: US BREAST RT LIMITED COMPARISON: None. INDICATIONS: cyst of right breast N60.01 TECHNIQUE: Breast ultrasound was performed, with evaluation focusing only on specific areas of concern. FINDINGS: DIAGNOSTIC CATEGORY 0--INCOMPLETE: NEED ADDITIONAL IMAGING EVALUATION. Ultrasound in the region of the patient's palpable abnormality right breast 10-11 o'clock position demonstrates multiple lesions superficial to a breast implant. The smallest lesion measures 1.0 x 0.9 x 1.0 cm. The largest lesion measures 6.7 x 2.4 x 4.4 cm. Both of these lesions demonstrate mixed solid and cystic components without definitive color flow in the soft tissue components. An additional multi cystic lesion is observed measuring 2.9 x 1.1 cm with punctate hyper echogenic foci likely representing calcifications. In light of the patient's complex surgical history including fat transfer and breast implants. Bilateral diagnostic mammogram was recommended. The patient will return for the mammogram when her prior outside comparisons are available. RECOMMENDATIONS: ADDITIONAL MAMMOGRAPHIC VIEWS REQUIRED: BILATERAL BREASTS - PLEASE NOTE: A NORMAL ULTRASOUND EXAMINATION DOES NOT EXCLUDE THE POSSIBILITY OF BREAST CANCER. A CLINICALLY SUSPICIOUS PALPABLE LUMP SHOULD BE BIOPSIED. Dictated by: Abelardo Hamilton MD on 01/27/2024 at 10:14 Approved by: Abelardo Hamilton MD on 01/27/2024 at 10:41
== END 2024-01-27 09:33 | disposition home or self-care (01) ==
LOC: US 09:32
PROVIDERS: Visit Provider Obstetrics & Gynecology
DX: N60.01 Solitary cyst of right breast (principal)
CPT/HCPCS: 76642

== ENCOUNTER 2025-01-12 12:46 | Outpatient (REF) | payer MEDICAID, SELFPAY ==
[2025-01-16 17:08] LABS: Age Gdln ACOG Testing Note (.); HPV Aptima Negative (Negative); IGP, Aptima HPV, rfx 16/18,45 Note (.)
== END 2025-01-12 12:47 | disposition home or self-care (01) ==
LOC: LAB 12:46
PROVIDERS: Visit Provider Obstetrics & Gynecology
DX: Z01.419 Encounter for gynecological examination (general) (routine) without abnormal findings (principal)
CPT/HCPCS: 87624; 88175